=== PATIENT | male | born 1945 | race Caucasian/White ===

== ENCOUNTER 2018-03-21 06:10 | Inpatient (IN) | payer MEDICARE, OTHER ==
[~2018-03-21] VITALS: Ht 177.8 cm; Wt 97.7 kg
[~2018-03-21 06:10] MED LIST: ALPR-623 PO; AMIO200T40 PO; ATOR40TA PO; BUSP10TA11 PO; CLOP75TA35 PO; CYCL-1 PO; LISI-600 PO; QUET25TA PO; REM15T PO
[2018-03-21] MEDS ORDERED: ipratropium/albuterol 3ml nebule NEB ONE (06:15)
[2018-03-21] MEDS ORDERED: nitroGLYCERIN 0.4mg/hour patch TD ONE (06:15)
[2018-03-21] MEDS ORDERED: levoFLOXACIN-Levaquin 750MG/D5 150 ML IV ONE (06:15)
[2018-03-21] MEDS ORDERED: morphine 2 MG/ML inj. syringe IV ONE (06:15)
[2018-03-21] MEDS ORDERED: normal saline 1000ML IV soln IV ONE (06:15)
[2018-03-21] MEDS ORDERED: vancomycin/NS 1 GM ADD-VANTAGE 250 ML IV ONE (06:15)
[2018-03-21 06:32] LABS: BASOPHILS # (AUTO) 0.1 X10'3 (0-0.2); BASOPHILS % (AUTO) 0.5 % (0-1); EOSINOPHILS # (AUTO) 0.7 X10'3 (0-0.9); EOSINOPHILS % (AUTO) 5.9 % (0-6); HEMATOCRIT 56.7 % (42.0-52.0); LYMPHOCYTES # (AUTO) 1.5 X10'3 (1.1-4.8); LYMPHOCYTES % (AUTO) 12.3 % (21-51); MEAN CORPUSCULAR HEMOGLOBIN 29.1 PG (27.0-31.0); MEAN CORPUSCULAR HGB CONC 32.1 % (33.0-36.5); MEAN CORPUSCULAR VOLUME 90.7 FL (78-98); MEAN PLATELET VOLUME 8.5 FL (7.4-10.4); MONOCYTES # (AUTO) 1.4 X10'3 (0-0.9); MONOCYTES % (AUTO) 11.2 % (2-12); NEUTROPHILS # (AUTO) 8.7 X10'3 (1.8-7.7); NEUTROPHILS % (AUTO) 70.1 % (42-75); PLATELET COUNT 140 X10'3 (140-440); RED BLOOD COUNT 6.25 X10'6 (4.70-6.10); RED CELL DISTRIBUTION WIDTH 15.4 % (11.5-14.5); WHITE BLOOD COUNT 12.4 X10'3 (4.5-11.0)
[2018-03-21 06:40] LABS: ALANINE AMINOTRANSFERASE 38 U/L (12-78); ALBUMIN 3.3 G/DL (3.4-5.0); ALBUMIN/GLOBULIN RATIO 0.8 (1.1-1.5); ALKALINE PHOSPHATASE 126 IU/L (46-116); ANION GAP 6 (8-16); ASPARTATE AMINO TRANSFERASE 27 U/L (10-37); BILIRUBIN,TOTAL 1.1 MG/DL (0.1-1.0); BLOOD UREA NITROGEN 29 MG/DL (7-18); BUN/CREATININE RATIO 12.2 (5.4-32.0); CALCIUM 9.4 MG/DL (8.5-10.1); CHLORIDE 100 MMOL/L (99-107); CREATININE 2.38 MG/DL (0.60-1.10); GLUCOSE 120 MG/DL (70-104); SODIUM 138 MMOL/L (135-145); TOTAL PROTEIN 7.7 G/DL (6.4-8.2); eGFR 27 ML/MIN
[2018-03-21 06:48] LABS: MAGNESIUM 2.2 MG/DL (1.5-2.4); TROPONIN I 0.06 NG/ML (0.0-0.05)
[2018-03-21 06:51] LABS: HEMOGLOBIN 18.2 g/dl (14.0-17.9)
[2018-03-21] MEDS ORDERED: DOCU100C41 PO (07:28)
[2018-03-21] MEDS ORDERED: CARV-50 PO ×2 (07:47→07:59)
[2018-03-21] MEDS ORDERED: BENZ-38 PO (07:47)
[2018-03-21] MEDS ORDERED: MIRT15TA PO (07:47)
[2018-03-21] MEDS ORDERED: QUET25TA PO (07:47)
[2018-03-21] MEDS ORDERED: triamterene PO (07:59)
[2018-03-21] MEDS ORDERED: CLOP75TA15 PO (07:59)
[2018-03-21] MEDS ORDERED: FURO-150 PO (07:59)
[2018-03-21] MEDS ORDERED: LISI-600 PO (07:59)
[2018-03-21] MEDS ORDERED: MIRT30TA3 PO (07:59)
[2018-03-21] MEDS ORDERED: ALPR-624 PO (07:59)
[2018-03-21] MEDS ORDERED: CYCL-1 PO (07:59)
[2018-03-21] MEDS ORDERED: LORazepam 2 mg/ml vial IV ONE (08:20)
[2018-03-21 08:27] LABS: D-DIMER 1.18 MG/L FEU (0-0.50); PROTHROMBIN TIME 10.2 SECONDS (9.0-12.0)
[2018-03-21] MEDS ORDERED: methylPREDNISolone sod succ 125mg/2ml vial IV ONE (08:55)
[2018-03-21] MEDS ORDERED: magnesium 4gm in 100ml NS 100 ML IV PRN (09:00)
[2018-03-21] MEDS ORDERED: potassium Cl 20 mEq SR tablet PO PRN ×2 (09:00)
[2018-03-21] MEDS ORDERED: ipratropium/albuterol 3ml nebule NEB PRN (09:00)
[2018-03-21] MEDS ORDERED: ondansetron/PF 4mg/2ml inj IV PRN (09:00)
[2018-03-21] MEDS ORDERED: morphine 2 MG/ML inj. syringe IV PRN ×2 (09:00)
[2018-03-21] MEDS ORDERED: acetaminophen 325mg tablet PO PRN ×2 (09:00)
[2018-03-21] MEDS ORDERED: magnesium 1gm/100ml D5W IVPB 100 ML IV PRN (09:00)
[2018-03-21] MEDS ORDERED: HYDROcodone/acetaminophen 5mg/325mg tablet PO PRN (09:00)
[2018-03-21] MEDS ORDERED: magnesium Cl slow-release 64mg tablet PO PRN (09:00)
[2018-03-21] MEDS ORDERED: mag hydrox/Alum hydrox/simeth 30ml oral suspension PO PRN (09:00)
[2018-03-21] MEDS ORDERED: potassium Cl 40MEQ/NS 500ml 500 ML IV PRN ×2 (09:00)
[2018-03-21 10:59] LABS: CLARITY,URINE CLEAR (Clear); COLOR,URINE YELLOW (Yellow); GLUCOSE, URINE NEGATIVE (Neg); KETONES,URINE TRACE mg/dl (Neg); LEUKOCYTE ESTERASE ,URINE NEGATIVE (Neg); NITRITES, URINE NEGATIVE (Neg); OCCULT BLOOD,URINE NEGATIVE (Neg); PROTEIN,URINE 30 mg/dl (Neg); UROBILINOGEN,URINE 0.2 E.U/dL (0.2-1.0)
[2018-03-21 11:02] LABS: UA COLLECTION TYPE VOIDED
[2018-03-21 11:09] LABS: BACTERIA,URINE FEW /HPF (Neg); RBC,URINE 0-2 /HPF (0-2); SQUAMOUS EPITHELIAL CELL,UR FEW /LPF (FEW); WBC,URINE 0-4 /HPF (0-4)
[2018-03-21 15:15] VITALS: BP 135/54
[2018-03-21 15:30] VITALS: BP 109/53
[2018-03-21 19:00] VITALS: BP 128/55
[2018-03-21] MEDS: methylPREDNISolone sod succ/PF 40mg inj. IV SCH (19:25)
[2018-03-21 21:00] VITALS: BP 105/41
[2018-03-21 23:00] VITALS: BP 106/50
[2018-03-22] VITALS (8 sets, daily range): BP systolic 103–145; BP diastolic 51–70
[2018-03-22] MEDS: methylPREDNISolone sod succ/PF 40mg inj. IV SCH ×4 (02:10→20:06)
[2018-03-22 06:13] LABS: BASOPHILS % (AUTO) 0 % (0-1); EOSINOPHILS % (AUTO) 0 % (0-6); HEMATOCRIT 51.7 % (42.0-52.0); HEMOGLOBIN 16.4 g/dl (14.0-17.9); LYMPHOCYTES # (AUTO) 0.3 X10'3 (1.1-4.8); LYMPHOCYTES % (AUTO) 3.4 % (21-51); MEAN CORPUSCULAR HEMOGLOBIN 29.3 PG (27.0-31.0); MEAN CORPUSCULAR HGB CONC 31.8 % (33.0-36.5); MEAN CORPUSCULAR VOLUME 92.3 FL (78-98); MEAN PLATELET VOLUME 8.8 FL (7.4-10.4); MONOCYTES # (AUTO) 0.2 X10'3 (0-0.9); NEUTROPHILS # (AUTO) 8.4 X10'3 (1.8-7.7); NEUTROPHILS % (AUTO) 94.6 % (42-75); PLATELET COUNT 116 X10'3 (140-440); RED CELL DISTRIBUTION WIDTH 14.9 % (11.5-14.5); WHITE BLOOD COUNT 8.9 X10'3 (4.5-11.0)
[2018-03-22 06:46] LABS: ALANINE AMINOTRANSFERASE 31 U/L (12-78); ALBUMIN 2.8 G/DL (3.4-5.0); ALBUMIN/GLOBULIN RATIO 0.7 (1.1-1.5); ALKALINE PHOSPHATASE 95 IU/L (46-116); ANION GAP 9 (8-16); ASPARTATE AMINO TRANSFERASE 19 U/L (10-37); BILIRUBIN,TOTAL 0.6 MG/DL (0.1-1.0); BLOOD UREA NITROGEN 28 MG/DL (7-18); BUN/CREATININE RATIO 15.6 (5.4-32.0); CALCIUM 9.1 MG/DL (8.5-10.1); CHLORIDE 103 MMOL/L (99-107); CHOL/HDL RATIO 2.6 (0.00-4.99); CHOLESTEROL 130 MG/DL (0-200); GLUCOSE 146 MG/DL (70-104); HDL CHOLESTEROL 50 MG/DL (35-60); LDL CHOLESTEROL 69 MG/DL (50-100); POTASSIUM 5.1 MMOL/L (3.5-5.1); SODIUM 139 MMOL/L (135-145); TOTAL CARBON DIOXIDE 26.8 MMOL/L (24-32); TOTAL PROTEIN 6.9 G/DL (6.4-8.2); TRIGLYCERIDES 77 MG/DL (20-135); eGFR 37 ML/MIN
[2018-03-22] MEDS ORDERED: enoxaparin 40mg/0.4ml syringe SQ SCH (08:00)
[2018-03-22] MEDS: K and/or MAG REPLACEMENT MC SCH (08:00)
[2018-03-22] MEDS: levoFLOXACIN-Levaquin 500mg/D5 100 ML IV SCH (08:36)
[2018-03-22] MEDS: CefTRIAXone/D5W-Rocephin 1gm 50 ML IV SCH (12:27)
[2018-03-22] MEDS: enoxaparin 100mg/ml syringe SUBCUT SCH (20:07)
[2018-03-22] MEDS: lactobacillus rhamnosus 10,000 MMU CELLS/CAPSULE PO SCH (20:07)
[2018-03-23] MEDS: methylPREDNISolone sod succ/PF 40mg inj. IV SCH ×2 (01:26→07:52)
[2018-03-23] MEDS ORDERED: QUEtiapine 25mg tablet PO SCH (01:50)
[2018-03-23 02:56] VITALS: BP 138/63
[2018-03-23 05:08] LABS: BASOPHILS % (AUTO) 0.1 % (0-1); EOSINOPHILS % (AUTO) 0 % (0-6); HEMATOCRIT 49.3 % (42.0-52.0); HEMOGLOBIN 15.7 g/dl (14.0-17.9); LYMPHOCYTES # (AUTO) 0.5 X10'3 (1.1-4.8); LYMPHOCYTES % (AUTO) 2.8 % (21-51); MEAN CORPUSCULAR HEMOGLOBIN 29.2 PG (27.0-31.0); MEAN CORPUSCULAR HGB CONC 31.9 % (33.0-36.5); MEAN CORPUSCULAR VOLUME 91.8 FL (78-98); MEAN PLATELET VOLUME 9.2 FL (7.4-10.4); MONOCYTES # (AUTO) 0.6 X10'3 (0-0.9); MONOCYTES % (AUTO) 3.5 % (2-12); NEUTROPHILS # (AUTO) 15.1 X10'3 (1.8-7.7); NEUTROPHILS % (AUTO) 93.6 % (42-75); PLATELET COUNT 112 X10'3 (140-440); RED BLOOD COUNT 5.37 X10'6 (4.70-6.10); WHITE BLOOD COUNT 16.1 X10'3 (4.5-11.0)
[2018-03-23 05:53] LABS: ALANINE AMINOTRANSFERASE 28 U/L (12-78); ALBUMIN 2.6 G/DL (3.4-5.0); ALBUMIN/GLOBULIN RATIO 0.7 (1.1-1.5); ALKALINE PHOSPHATASE 84 IU/L (46-116); ANION GAP 10 (8-16); ASPARTATE AMINO TRANSFERASE 18 U/L (10-37); BILIRUBIN,TOTAL 0.4 MG/DL (0.1-1.0); BLOOD UREA NITROGEN 30 MG/DL (7-18); BUN/CREATININE RATIO 19.7 (5.4-32.0); CALCIUM 9.3 MG/DL (8.5-10.1); CHLORIDE 105 MMOL/L (99-107); CREATININE 1.52 MG/DL (0.60-1.10); GLUCOSE 142 MG/DL (70-104); POTASSIUM 4.9 MMOL/L (3.5-5.1); SODIUM 141 MMOL/L (135-145); TOTAL CARBON DIOXIDE 26.4 MMOL/L (24-32); TOTAL PROTEIN 6.3 G/DL (6.4-8.2); eGFR 45 ML/MIN
[2018-03-23 06:00] VITALS: BP 114/54
[2018-03-23] MEDS: K and/or MAG REPLACEMENT MC SCH (06:45)
[2018-03-23] MEDS: levoFLOXACIN-Levaquin 500mg/D5 100 ML IV SCH (07:51)
[2018-03-23] MEDS: lactobacillus rhamnosus 10,000 MMU CELLS/CAPSULE PO SCH ×2 (07:54→21:01)
[2018-03-23] MEDS: enoxaparin 100mg/ml syringe SUBCUT SCH ×2 (07:56→21:02)
[2018-03-23] MEDS: CefTRIAXone/D5W-Rocephin 1gm 50 ML IV SCH (09:22)
[2018-03-23 11:00] VITALS: BP 126/78
[2018-03-23] MEDS ORDERED: cyclobenzaprine 10mg tablet PO PRN (13:20)
[2018-03-23] MEDS: predniSONE 20 mg tablet PO SCH (13:40)
[2018-03-23 15:00] VITALS: BP 141/52
[2018-03-23] MEDS: ipratropium 0.5 MG/2.5ML nebule IH SCH ×2 (15:08→20:51)
[2018-03-23 19:00] VITALS: BP 133/63
[2018-03-23] MEDS: mirtazapine 15mg tablet PO SCH (20:57)
[2018-03-23] MEDS: busPIRone 5mg tablet PO SCH (21:00)
[2018-03-23] MEDS: carVEDilol 12.5mg tablet PO SCH (21:00)
[2018-03-23] MEDS: ALPRAZolam 0.5mg tablet PO SCH (21:01)
[2018-03-23] MEDS: lisinopril 5mg tablet PO SCH (21:01)
[2018-03-23] MEDS: QUEtiapine 25mg tablet PO SCH (21:03)
[2018-03-23] MEDS: atorvastatin 20mg tablet PO SCH (21:03)
[2018-03-23 23:00] VITALS: BP 134/57
[2018-03-24] MEDS: ipratropium 0.5 MG/2.5ML nebule IH SCH ×4 (02:00→20:36)
[2018-03-24 03:00] VITALS: BP 116/60
[2018-03-24 05:36] LABS: BASOPHILS % (AUTO) 0 % (0-1); EOSINOPHILS % (AUTO) 0 % (0-6); HEMATOCRIT 48.1 % (42.0-52.0); HEMOGLOBIN 15.4 g/dl (14.0-17.9); LYMPHOCYTES # (AUTO) 0.5 X10'3 (1.1-4.8); LYMPHOCYTES % (AUTO) 3.5 % (21-51); MEAN CORPUSCULAR HEMOGLOBIN 29.2 PG (27.0-31.0); MEAN CORPUSCULAR HGB CONC 31.9 % (33.0-36.5); MEAN CORPUSCULAR VOLUME 91.6 FL (78-98); MEAN PLATELET VOLUME 8.9 FL (7.4-10.4); MONOCYTES # (AUTO) 0.9 X10'3 (0-0.9); NEUTROPHILS # (AUTO) 13.8 X10'3 (1.8-7.7); NEUTROPHILS % (AUTO) 90.5 % (42-75); PLATELET COUNT 121 X10'3 (140-440); RED BLOOD COUNT 5.25 X10'6 (4.70-6.10); RED CELL DISTRIBUTION WIDTH 14.9 % (11.5-14.5); WHITE BLOOD COUNT 15.2 X10'3 (4.5-11.0)
[2018-03-24 05:56] LABS: ALANINE AMINOTRANSFERASE 32 U/L (12-78); ALBUMIN 2.5 G/DL (3.4-5.0); ALBUMIN/GLOBULIN RATIO 0.7 (1.1-1.5); ALKALINE PHOSPHATASE 79 IU/L (46-116); ANION GAP 4 (8-16); ASPARTATE AMINO TRANSFERASE 18 U/L (10-37); BILIRUBIN,TOTAL 0.5 MG/DL (0.1-1.0); BLOOD UREA NITROGEN 33 MG/DL (7-18); BUN/CREATININE RATIO 20.4 (5.4-32.0); CALCIUM 9.1 MG/DL (8.5-10.1); CHLORIDE 106 MMOL/L (99-107); CREATININE 1.62 MG/DL (0.60-1.10); GLUCOSE 123 MG/DL (70-104); MAGNESIUM 2.1 MG/DL (1.5-2.4); POTASSIUM 4.7 MMOL/L (3.5-5.1); SODIUM 142 MMOL/L (135-145); TOTAL CARBON DIOXIDE 32.5 MMOL/L (24-32); TOTAL PROTEIN 5.9 G/DL (6.4-8.2); eGFR 42 ML/MIN
[2018-03-24 06:00] VITALS: BP 133/70
[2018-03-24] MEDS: enoxaparin 100mg/ml syringe SUBCUT SCH (07:38)
[2018-03-24] MEDS: lactobacillus rhamnosus 10,000 MMU CELLS/CAPSULE PO SCH ×2 (07:39→21:08)
[2018-03-24] MEDS: predniSONE 20 mg tablet PO SCH (07:39)
[2018-03-24] MEDS: ALPRAZolam 0.5mg tablet PO SCH ×2 (07:39→21:07)
[2018-03-24] MEDS: furosemide 20MG tablet PO SCH (07:39)
[2018-03-24] MEDS: carVEDilol 12.5mg tablet PO SCH ×2 (07:39→21:08)
[2018-03-24] MEDS: busPIRone 5mg tablet PO SCH ×2 (07:39→21:07)
[2018-03-24] MEDS: lisinopril 5mg tablet PO SCH ×2 (07:40→21:07)
[2018-03-24] MEDS: levoFLOXACIN-Levaquin 500mg/D5 100 ML IV SCH (07:41)
[2018-03-24] MEDS: CefTRIAXone/D5W-Rocephin 1gm 50 ML IV SCH (07:41)
[2018-03-24] MEDS: K and/or MAG REPLACEMENT MC SCH (08:00)
[2018-03-24 11:00] VITALS: BP 113/58
[2018-03-24 19:00] VITALS: BP 141/65
[2018-03-24] MEDS: mirtazapine 15mg tablet PO SCH (21:00)
[2018-03-24] MEDS: atorvastatin 20mg tablet PO SCH (21:07)
[2018-03-24] MEDS: QUEtiapine 25mg tablet PO SCH (21:08)
[2018-03-24 22:00] VITALS: BP 150/58
[2018-03-25 02:00] VITALS: BP 111/55
[2018-03-25] MEDS: ipratropium 0.5 MG/2.5ML nebule IH SCH ×3 (03:00→19:59)
[2018-03-25 05:23] LABS: BASOPHILS % (AUTO) 0.1 % (0-1); EOSINOPHILS % (AUTO) 0 % (0-6); HEMATOCRIT 50.9 % (42.0-52.0); HEMOGLOBIN 16.2 g/dl (14.0-17.9); LYMPHOCYTES % (AUTO) 8.2 % (21-51); MEAN CORPUSCULAR HEMOGLOBIN 29.1 PG (27.0-31.0); MEAN CORPUSCULAR HGB CONC 31.9 % (33.0-36.5); MEAN CORPUSCULAR VOLUME 91.3 FL (78-98); MEAN PLATELET VOLUME 8.8 FL (7.4-10.4); NEUTROPHILS # (AUTO) 10.2 X10'3 (1.8-7.7); NEUTROPHILS % (AUTO) 83.7 % (42-75); PLATELET COUNT 113 X10'3 (140-440); RED BLOOD COUNT 5.57 X10'6 (4.70-6.10); RED CELL DISTRIBUTION WIDTH 15.4 % (11.5-14.5); WHITE BLOOD COUNT 12.2 X10'3 (4.5-11.0)
[2018-03-25 05:52] LABS: ALANINE AMINOTRANSFERASE 39 U/L (12-78); ALBUMIN 2.5 G/DL (3.4-5.0); ALBUMIN/GLOBULIN RATIO 0.7 (1.1-1.5); ALKALINE PHOSPHATASE 80 IU/L (46-116); ANION GAP 3 (8-16); ASPARTATE AMINO TRANSFERASE 19 U/L (10-37); BILIRUBIN,TOTAL 0.5 MG/DL (0.1-1.0); BLOOD UREA NITROGEN 37 MG/DL (7-18); BUN/CREATININE RATIO 21.9 (5.4-32.0); CHLORIDE 105 MMOL/L (99-107); CREATININE 1.69 MG/DL (0.60-1.10); GLUCOSE 94 MG/DL (70-104); MAGNESIUM 2.3 MG/DL (1.5-2.4); POTASSIUM 4.3 MMOL/L (3.5-5.1); SODIUM 143 MMOL/L (135-145); TOTAL CARBON DIOXIDE 34.7 MMOL/L (24-32); eGFR 40 ML/MIN
[2018-03-25 06:00] VITALS: BP 130/70
[2018-03-25] MEDS: lisinopril 5mg tablet PO SCH ×2 (07:01→20:07)
[2018-03-25] MEDS: carVEDilol 12.5mg tablet PO SCH ×2 (07:01→20:07)
[2018-03-25] MEDS: busPIRone 5mg tablet PO SCH ×2 (08:00→14:46)
[2018-03-25] MEDS: ALPRAZolam 0.5mg tablet PO SCH ×2 (08:00→14:44)
[2018-03-25] MEDS: furosemide 20MG tablet PO SCH ×2 (08:00→14:45)
[2018-03-25] MEDS: levoFLOXACIN-Levaquin 500mg/D5 100 ML IV SCH ×2 (08:00→14:47)
[2018-03-25] MEDS: K and/or MAG REPLACEMENT MC SCH (08:00)
[2018-03-25] MEDS: predniSONE 20 mg tablet PO SCH ×2 (08:00→14:45)
[2018-03-25] MEDS: CefTRIAXone/D5W-Rocephin 1gm 50 ML IV SCH ×2 (08:00→14:47)
[2018-03-25] MEDS: lactobacillus rhamnosus 10,000 MMU CELLS/CAPSULE PO SCH ×2 (08:00→14:45)
[2018-03-25 14:18] VITALS: BP 127/75
[2018-03-25 15:00] VITALS: BP 119/43
[2018-03-25] MEDS: magnesium hydroxide 30ml (MOM) UD suspension PO PRN (18:37)
[2018-03-25 19:00] VITALS: BP 125/57
[2018-03-25] MEDS: mirtazapine 15mg tablet PO SCH (20:07)
[2018-03-25] MEDS: QUEtiapine 25mg tablet PO SCH (20:07)
[2018-03-25] MEDS: atorvastatin 20mg tablet PO SCH (20:07)
[2018-03-25] MEDS: enoxaparin 100mg/ml syringe SUBCUT SCH (20:08)
[2018-03-25 23:00] VITALS: BP 116/46
[2018-03-26] VITALS (10 sets, daily range): BP systolic 79–133; BP diastolic 38–58
[2018-03-26] MEDS: ipratropium 0.5 MG/2.5ML nebule IH SCH ×4 (02:21→20:27)
[2018-03-26] MEDS ORDERED: normal saline 1000ml 1,000 ML IVB ONE (03:36)
[2018-03-26] MEDS: normal saline 1000ml 1,000 ML IV SCH ×4 (04:16→23:36)
[2018-03-26 05:57] LABS: BASOPHILS % (AUTO) 0 % (0-1); EOSINOPHILS % (AUTO) 0 % (0-6); HEMATOCRIT 51.6 % (42.0-52.0); HEMOGLOBIN 16.5 g/dl (14.0-17.9); LYMPHOCYTES # (AUTO) 0.5 X10'3 (1.1-4.8); MEAN CORPUSCULAR HEMOGLOBIN 29.4 PG (27.0-31.0); MEAN CORPUSCULAR HGB CONC 31.9 % (33.0-36.5); MEAN CORPUSCULAR VOLUME 92.2 FL (78-98); MONOCYTES # (AUTO) 0.6 X10'3 (0-0.9); MONOCYTES % (AUTO) 5.9 % (2-12); NEUTROPHILS # (AUTO) 9.2 X10'3 (1.8-7.7); NEUTROPHILS % (AUTO) 89.1 % (42-75); PLATELET COUNT 86 X10'3 (140-440); RED BLOOD COUNT 5.59 X10'6 (4.70-6.10); WHITE BLOOD COUNT 10.3 X10'3 (4.5-11.0)
[2018-03-26 06:12] LABS: ALANINE AMINOTRANSFERASE 43 U/L (12-78); ALBUMIN 2.5 G/DL (3.4-5.0); ALBUMIN/GLOBULIN RATIO 0.8 (1.1-1.5); ALKALINE PHOSPHATASE 75 IU/L (46-116); ANION GAP 3 (8-16); ASPARTATE AMINO TRANSFERASE 21 U/L (10-37); BILIRUBIN,TOTAL 0.5 MG/DL (0.1-1.0); BLOOD UREA NITROGEN 43 MG/DL (7-18); BUN/CREATININE RATIO 24.3 (5.4-32.0); CALCIUM 8.7 MG/DL (8.5-10.1); CHLORIDE 106 MMOL/L (99-107); CREATININE 1.77 MG/DL (0.60-1.10); GLUCOSE 124 MG/DL (70-104); MAGNESIUM 2.7 MG/DL (1.5-2.4); POTASSIUM 4.8 MMOL/L (3.5-5.1); SODIUM 145 MMOL/L (135-145); TOTAL CARBON DIOXIDE 35.8 MMOL/L (24-32); TOTAL PROTEIN 5.7 G/DL (6.4-8.2); eGFR 38 ML/MIN
[2018-03-26] MEDS: enoxaparin 100mg/ml syringe SUBCUT SCH ×2 (08:00→16:30)
[2018-03-26] MEDS: K and/or MAG REPLACEMENT MC SCH (08:00)
[2018-03-26] MEDS: ALPRAZolam 0.5mg tablet PO SCH ×2 (08:27→21:29)
[2018-03-26] MEDS: lisinopril 5mg tablet PO SCH ×2 (08:27→21:28)
[2018-03-26] MEDS: lactobacillus rhamnosus 10,000 MMU CELLS/CAPSULE PO SCH ×2 (08:27→21:27)
[2018-03-26] MEDS: busPIRone 5mg tablet PO SCH ×2 (08:28→21:28)
[2018-03-26] MEDS: carVEDilol 12.5mg tablet PO SCH ×2 (08:28→21:28)
[2018-03-26] MEDS ORDERED: magnesium citrate 296ml oral solution PO ONE (10:30)
[2018-03-26] MEDS: metroNIDAZOLE-Flagyl 500mg/NS 100 ML IV SCH (16:17)
[2018-03-26] MEDS: mirtazapine 15mg tablet PO SCH (21:00)
[2018-03-26] MEDS: atorvastatin 20mg tablet PO SCH (21:28)
[2018-03-26] MEDS: QUEtiapine 25mg tablet PO SCH (21:29)
[2018-03-27] MEDS: metroNIDAZOLE-Flagyl 500mg/NS 100 ML IV SCH ×4 (02:37→23:49)
[2018-03-27] MEDS: ipratropium 0.5 MG/2.5ML nebule IH SCH ×4 (02:48→20:29)
[2018-03-27 03:00] VITALS: BP 88/70
[2018-03-27 06:00] VITALS: BP 103/47
[2018-03-27] MEDS: normal saline 1000ml 1,000 ML IV SCH ×3 (06:16→19:36)
[2018-03-27] MEDS ORDERED: carvedilol 6.25mg tablet PO SCH (08:00)
[2018-03-27] MEDS: K and/or MAG REPLACEMENT MC SCH (08:00)
[2018-03-27] MEDS: enoxaparin 100mg/ml syringe SUBCUT SCH ×2 (08:00→20:58)
[2018-03-27] MEDS ORDERED: lisinopril 5mg tablet PO SCH (08:00)
[2018-03-27] MEDS: ALPRAZolam 0.5mg tablet PO SCH (08:14)
[2018-03-27] MEDS: furosemide 20MG tablet PO SCH (08:14)
[2018-03-27] MEDS: lactobacillus rhamnosus 10,000 MMU CELLS/CAPSULE PO SCH ×2 (08:16→20:57)
[2018-03-27] MEDS: predniSONE 20 mg tablet PO SCH (08:16)
[2018-03-27] MEDS: busPIRone 5mg tablet PO SCH ×2 (08:17→20:56)
[2018-03-27] MEDS: CefTRIAXone/D5W-Rocephin 1gm 50 ML IV SCH (08:18)
[2018-03-27 09:38] LABS: BASOPHILS % (AUTO) 0.2 % (0-1); EOSINOPHILS # (AUTO) 0.2 X10'3 (0-0.9); EOSINOPHILS % (AUTO) 2.2 % (0-6); HEMATOCRIT 51.2 % (42.0-52.0); HEMOGLOBIN 16.3 g/dl (14.0-17.9); LYMPHOCYTES % (AUTO) 9.2 % (21-51); MEAN CORPUSCULAR HEMOGLOBIN 29.2 PG (27.0-31.0); MEAN CORPUSCULAR HGB CONC 31.8 % (33.0-36.5); MEAN CORPUSCULAR VOLUME 92.1 FL (78-98); MEAN PLATELET VOLUME 8.3 FL (7.4-10.4); MONOCYTES # (AUTO) 0.6 X10'3 (0-0.9); MONOCYTES % (AUTO) 5.3 % (2-12); NEUTROPHILS # (AUTO) 8.7 X10'3 (1.8-7.7); NEUTROPHILS % (AUTO) 83.1 % (42-75); PLATELET COUNT 89 X10'3 (140-440); RED BLOOD COUNT 5.56 X10'6 (4.70-6.10); WHITE BLOOD COUNT 10.5 X10'3 (4.5-11.0)
[2018-03-27 09:52] LABS: ALANINE AMINOTRANSFERASE 47 U/L (12-78); ALBUMIN 2.3 G/DL (3.4-5.0); ALBUMIN/GLOBULIN RATIO 0.7 (1.1-1.5); ALKALINE PHOSPHATASE 74 IU/L (46-116); ANION GAP 4 (8-16); ASPARTATE AMINO TRANSFERASE 34 U/L (10-37); BILIRUBIN,TOTAL 0.7 MG/DL (0.1-1.0); BLOOD UREA NITROGEN 34 MG/DL (7-18); CALCIUM 8.2 MG/DL (8.5-10.1); CHLORIDE 106 MMOL/L (99-107); CREATININE 1.62 MG/DL (0.60-1.10); GLUCOSE 137 MG/DL (70-104); POTASSIUM 4.5 MMOL/L (3.5-5.1); SODIUM 144 MMOL/L (135-145); TOTAL CARBON DIOXIDE 33.6 MMOL/L (24-32); TOTAL PROTEIN 5.5 G/DL (6.4-8.2); eGFR 42 ML/MIN
[2018-03-27 11:00] VITALS: BP 129/63
[2018-03-27] MEDS: levoFLOXACIN 500mg tablet PO SCH (13:10)
[2018-03-27 15:00] VITALS: BP 131/65
[2018-03-27] MEDS: magnesium hydroxide 30ml (MOM) UD suspension PO PRN (15:00)
[2018-03-27 18:00] VITALS: BP 113/60
[2018-03-27] MEDS: QUEtiapine 25mg tablet PO SCH (20:55)
[2018-03-27] MEDS: atorvastatin 20mg tablet PO SCH (20:57)
[2018-03-27 22:00] VITALS: BP 117/43
[2018-03-28] VITALS (7 sets, daily range): BP systolic 102–142; BP diastolic 47–70
[2018-03-28] MEDS: normal saline 1000ml 1,000 ML IV SCH ×3 (02:16→21:37)
[2018-03-28] MEDS: ipratropium 0.5 MG/2.5ML nebule IH SCH ×4 (02:56→20:31)
[2018-03-28 06:13] LABS: BASOPHILS % (AUTO) 0 % (0-1); EOSINOPHILS % (AUTO) 0.3 % (0-6); HEMATOCRIT 47.3 % (42.0-52.0); HEMOGLOBIN 14.9 g/dl (14.0-17.9); LYMPHOCYTES # (AUTO) 0.6 X10'3 (1.1-4.8); LYMPHOCYTES % (AUTO) 5.6 % (21-51); MEAN CORPUSCULAR HEMOGLOBIN 29.1 PG (27.0-31.0); MEAN CORPUSCULAR HGB CONC 31.4 % (33.0-36.5); MEAN CORPUSCULAR VOLUME 92.6 FL (78-98); MEAN PLATELET VOLUME 8.9 FL (7.4-10.4); MONOCYTES # (AUTO) 0.7 X10'3 (0-0.9); MONOCYTES % (AUTO) 6.5 % (2-12); NEUTROPHILS # (AUTO) 9.3 X10'3 (1.8-7.7); NEUTROPHILS % (AUTO) 87.6 % (42-75); PLATELET COUNT 87 X10'3 (140-440); RED BLOOD COUNT 5.11 X10'6 (4.70-6.10); RED CELL DISTRIBUTION WIDTH 14.9 % (11.5-14.5); WHITE BLOOD COUNT 10.6 X10'3 (4.5-11.0)
[2018-03-28 06:37] LABS: ALANINE AMINOTRANSFERASE 51 U/L (12-78); ALBUMIN 2.1 G/DL (3.4-5.0); ALBUMIN/GLOBULIN RATIO 0.7 (1.1-1.5); ALKALINE PHOSPHATASE 66 IU/L (46-116); ANION GAP 1 (8-16); ASPARTATE AMINO TRANSFERASE 24 U/L (10-37); BILIRUBIN,TOTAL 0.4 MG/DL (0.1-1.0); BLOOD UREA NITROGEN 30 MG/DL (7-18); BUN/CREATININE RATIO 20.7 (5.4-32.0); CALCIUM 8.3 MG/DL (8.5-10.1); CHLORIDE 108 MMOL/L (99-107); CREATININE 1.45 MG/DL (0.60-1.10); GLUCOSE 142 MG/DL (70-104); MAGNESIUM 2.7 MG/DL (1.5-2.4); POTASSIUM 4.7 MMOL/L (3.5-5.1); SODIUM 145 MMOL/L (135-145); TOTAL CARBON DIOXIDE 35.9 MMOL/L (24-32); TOTAL PROTEIN 5.2 G/DL (6.4-8.2); eGFR 48 ML/MIN
[2018-03-28] MEDS: metroNIDAZOLE-Flagyl 500mg/NS 100 ML IV SCH ×3 (07:59→23:24)
[2018-03-28] MEDS: CefTRIAXone/D5W-Rocephin 1gm 50 ML IV SCH (07:59)
[2018-03-28] MEDS: ALPRAZolam 0.5mg tablet PO SCH (08:00)
[2018-03-28] MEDS: enoxaparin 100mg/ml syringe SUBCUT SCH (08:00)
[2018-03-28] MEDS: lactobacillus rhamnosus 10,000 MMU CELLS/CAPSULE PO SCH ×2 (08:00→20:19)
[2018-03-28] MEDS: K and/or MAG REPLACEMENT MC SCH (08:00)
[2018-03-28] MEDS: predniSONE 20 mg tablet PO SCH (08:00)
[2018-03-28] MEDS: busPIRone 5mg tablet PO SCH ×2 (08:00→20:19)
[2018-03-28] MEDS: levoFLOXACIN 500mg tablet PO SCH (11:34)
[2018-03-28] MEDS: atorvastatin 20mg tablet PO SCH (20:19)
[2018-03-28] MEDS: QUEtiapine 25mg tablet PO SCH (20:19)
[2018-03-28] MEDS: apixaban 5mg tablet PO SCH (20:20)
[2018-03-29] MEDS: ipratropium 0.5 MG/2.5ML nebule IH SCH ×4 (02:00→20:12)
[2018-03-29 03:00] VITALS: BP 133/61
[2018-03-29 06:38] LABS: BASOPHILS % (AUTO) 0.4 % (0-1); EOSINOPHILS # (AUTO) 0.2 X10'3 (0-0.9); EOSINOPHILS % (AUTO) 1.5 % (0-6); HEMOGLOBIN 15.1 g/dl (14.0-17.9); LYMPHOCYTES # (AUTO) 1.2 X10'3 (1.1-4.8); LYMPHOCYTES % (AUTO) 10.6 % (21-51); MEAN CORPUSCULAR HEMOGLOBIN 29.1 PG (27.0-31.0); MEAN CORPUSCULAR HGB CONC 31.6 % (33.0-36.5); MEAN CORPUSCULAR VOLUME 92.3 FL (78-98); MEAN PLATELET VOLUME 8.5 FL (7.4-10.4); MONOCYTES # (AUTO) 1.2 X10'3 (0-0.9); MONOCYTES % (AUTO) 10.4 % (2-12); NEUTROPHILS # (AUTO) 8.8 X10'3 (1.8-7.7); NEUTROPHILS % (AUTO) 77.1 % (42-75); PLATELET COUNT 104 X10'3 (140-440); RED CELL DISTRIBUTION WIDTH 15.1 % (11.5-14.5); WHITE BLOOD COUNT 11.4 X10'3 (4.5-11.0)
[2018-03-29 06:45] VITALS: BP 163/69
[2018-03-29 06:53] LABS: ALANINE AMINOTRANSFERASE 45 U/L (12-78); ALBUMIN 2.3 G/DL (3.4-5.0); ALBUMIN/GLOBULIN RATIO 0.7 (1.1-1.5); ALKALINE PHOSPHATASE 65 IU/L (46-116); ANION GAP 0 (8-16); ASPARTATE AMINO TRANSFERASE 18 U/L (10-37); BILIRUBIN,TOTAL 0.4 MG/DL (0.1-1.0); BLOOD UREA NITROGEN 26 MG/DL (7-18); BUN/CREATININE RATIO 18.7 (5.4-32.0); CALCIUM 8.7 MG/DL (8.5-10.1); CHLORIDE 107 MMOL/L (99-107); CREATININE 1.39 MG/DL (0.60-1.10); GLUCOSE 103 MG/DL (70-104); POTASSIUM 4.5 MMOL/L (3.5-5.1); SODIUM 144 MMOL/L (135-145); TOTAL CARBON DIOXIDE 37.3 MMOL/L (24-32); TOTAL PROTEIN 5.4 G/DL (6.4-8.2); eGFR 50 ML/MIN
[2018-03-29] MEDS: predniSONE 20 mg tablet PO SCH (07:49)
[2018-03-29] MEDS: metroNIDAZOLE-Flagyl 500mg/NS 100 ML IV SCH ×2 (07:49→15:24)
[2018-03-29] MEDS: CefTRIAXone/D5W-Rocephin 1gm 50 ML IV SCH (07:49)
[2018-03-29] MEDS: ALPRAZolam 0.5mg tablet PO SCH (07:50)
[2018-03-29] MEDS: lactobacillus rhamnosus 10,000 MMU CELLS/CAPSULE PO SCH ×2 (07:50→20:42)
[2018-03-29] MEDS: busPIRone 5mg tablet PO SCH ×2 (07:50→20:41)
[2018-03-29] MEDS: apixaban 5mg tablet PO SCH ×2 (07:50→20:41)
[2018-03-29] MEDS: K and/or MAG REPLACEMENT MC SCH (07:57)
[2018-03-29] MEDS: levoFLOXACIN 500mg tablet PO SCH (11:18)
[2018-03-29] MEDS: amLODIPine 5mg tablet PO SCH (15:17)
[2018-03-29] MEDS: normal saline 1000ml 1,000 ML IV SCH (18:29)
[2018-03-29 19:00] VITALS: BP 151/68
[2018-03-29] MEDS: atorvastatin 20mg tablet PO SCH (20:41)
[2018-03-29] MEDS: QUEtiapine 25mg tablet PO SCH (20:42)
[2018-03-29 23:00] VITALS: BP 130/63
[2018-03-30] MEDS: metroNIDAZOLE-Flagyl 500mg/NS 100 ML IV SCH ×2 (00:15→07:46)
[2018-03-30] MEDS: ipratropium 0.5 MG/2.5ML nebule IH SCH ×2 (02:00→08:14)
[2018-03-30 03:00] VITALS: BP 154/75
[2018-03-30 06:00] VITALS: BP 159/75
[2018-03-30 06:09] LABS: BASOPHILS % (AUTO) 0.2 % (0-1); EOSINOPHILS # (AUTO) 0.1 X10'3 (0-0.9); EOSINOPHILS % (AUTO) 1.3 % (0-6); HEMATOCRIT 47.6 % (42.0-52.0); HEMOGLOBIN 15.3 g/dl (14.0-17.9); LYMPHOCYTES # (AUTO) 1.1 X10'3 (1.1-4.8); LYMPHOCYTES % (AUTO) 11.1 % (21-51); MEAN CORPUSCULAR HEMOGLOBIN 29.3 PG (27.0-31.0); MEAN CORPUSCULAR VOLUME 91.4 FL (78-98); MEAN PLATELET VOLUME 8.5 FL (7.4-10.4); MONOCYTES # (AUTO) 1.3 X10'3 (0-0.9); MONOCYTES % (AUTO) 13.3 % (2-12); NEUTROPHILS # (AUTO) 7.5 X10'3 (1.8-7.7); NEUTROPHILS % (AUTO) 74.1 % (42-75); PLATELET COUNT 116 X10'3 (140-440); RED BLOOD COUNT 5.21 X10'6 (4.70-6.10); RED CELL DISTRIBUTION WIDTH 15.2 % (11.5-14.5); WHITE BLOOD COUNT 10.1 X10'3 (4.5-11.0)
[2018-03-30 06:53] LABS: ALANINE AMINOTRANSFERASE 44 U/L (12-78); ALBUMIN 2.3 G/DL (3.4-5.0); ALBUMIN/GLOBULIN RATIO 0.7 (1.1-1.5); ALKALINE PHOSPHATASE 62 IU/L (46-116); ANION GAP 4 (8-16); ASPARTATE AMINO TRANSFERASE 22 U/L (10-37); BILIRUBIN,TOTAL 0.4 MG/DL (0.1-1.0); BLOOD UREA NITROGEN 24 MG/DL (7-18); CALCIUM 8.8 MG/DL (8.5-10.1); CHLORIDE 106 MMOL/L (99-107); CREATININE 1.26 MG/DL (0.60-1.10); GLUCOSE 101 MG/DL (70-104); POTASSIUM 4.5 MMOL/L (3.5-5.1); SODIUM 142 MMOL/L (135-145); TOTAL CARBON DIOXIDE 31.6 MMOL/L (24-32); TOTAL PROTEIN 5.4 G/DL (6.4-8.2); eGFR 56 ML/MIN
[2018-03-30] MEDS: K and/or MAG REPLACEMENT MC SCH (07:05)
[2018-03-30] MEDS: ALPRAZolam 0.5mg tablet PO SCH (07:45)
[2018-03-30] MEDS: CefTRIAXone/D5W-Rocephin 1gm 50 ML IV SCH (07:46)
[2018-03-30] MEDS: busPIRone 5mg tablet PO SCH (07:46)
[2018-03-30] MEDS: amLODIPine 5mg tablet PO SCH (07:46)
[2018-03-30] MEDS: apixaban 5mg tablet PO SCH (07:46)
[2018-03-30] MEDS: lactobacillus rhamnosus 10,000 MMU CELLS/CAPSULE PO SCH (07:46)
[2018-03-30] MEDS: predniSONE 20 mg tablet PO SCH (07:46)
[2018-03-30] MEDS: normal saline 1000ml 1,000 ML IV SCH (09:48)
[2018-03-30 11:00] VITALS: BP 124/68
[2018-03-30] MEDS: levoFLOXACIN 500mg tablet PO SCH (11:13)
[2018-03-30] MEDS ORDERED: LEVO500T89 PO (11:37)
[2018-03-30] MEDS ORDERED: APIX5TAB3 PO (11:37)
[2018-03-30] MEDS ORDERED: ASPI81TA30 PO (11:37)
[2018-03-30] MEDS ORDERED: PRED10TA23 PO (11:37)
[2018-03-30] MEDS ORDERED: METR500T4 PO (11:37)
[2018-03-30] MEDS ORDERED: ALBU8.5H8 IH (11:37)
[2018-04-04] MEDS ORDERED: apixaban 5mg tablet PO SCH (20:00)
== END 2018-03-30 14:57 | disposition home health service (06) | DRG 180 ==
LOC: ER 06:11 → ED HOLD 08:58 → EDBEDREQ 12:21 → PCU 3S 14:10
PROVIDERS: ADMIT Internal Medicine; ATTEND Internal Medicine
PROC: 5A09357 Assistance with Respiratory Ventilation, Less than 24 Consecutive Hours, Continuous Positive Airway Pressure (ICD-10-PCS; principal; 2018-03-21)
PROC: CB121ZZ Planar Nuclear Medicine Imaging of Lungs and Bronchi using Technetium 99m (Tc-99m) (ICD-10-PCS; 2018-03-21)
PROC: 5A09357 Assistance with Respiratory Ventilation, Less than 24 Consecutive Hours, Continuous Positive Airway Pressure (ICD-10-PCS; 2018-03-26)
PROC: 5A09357 Assistance with Respiratory Ventilation, Less than 24 Consecutive Hours, Continuous Positive Airway Pressure (ICD-10-PCS; 2018-03-27)
DX: C34.91 Malignant neoplasm of unspecified part of right bronchus or lung (principal); I26.99 Other pulmonary embolism without acute cor pulmonale; J18.1 Lobar pneumonia, unspecified organism; J96.01 Acute respiratory failure with hypoxia; J44.1 Chronic obstructive pulmonary disease with (acute) exacerbation; R65.10 Systemic inflammatory response syndrome (SIRS) of non-infectious origin without acute organ dysfunction; J44.0 Chronic obstructive pulmonary disease with (acute) lower respiratory infection; N17.9 Acute kidney failure, unspecified; I25.10 Atherosclerotic heart disease of native coronary artery without angina pectoris; D75.1 Secondary polycythemia; F10.20 Alcohol dependence, uncomplicated; D69.6 Thrombocytopenia, unspecified; E66.01 Morbid (severe) obesity due to excess calories; R26.2 Difficulty in walking, not elsewhere classified; R59.0 Localized enlarged lymph nodes; I36.1 Nonrheumatic tricuspid (valve) insufficiency; E78.5 Hyperlipidemia, unspecified; E86.0 Dehydration; W18.39XA Other fall on same level, initial encounter; F17.290 Nicotine dependence, other tobacco product, uncomplicated; I10 Essential (primary) hypertension; N18.9 Chronic kidney disease, unspecified; Z90.5 Acquired absence of kidney; Z95.810 Presence of automatic (implantable) cardiac defibrillator; Z95.1 Presence of aortocoronary bypass graft; Z88.6 Allergy status to analgesic agent; Z79.899 Other long term (current) drug therapy; Z80.9 Family history of malignant neoplasm, unspecified; Z80.1 Family history of malignant neoplasm of trachea, bronchus and lung; Z82.49 Family history of ischemic heart disease and other diseases of the circulatory system; Z68.30 Body mass index [BMI] 30.0-30.9, adult; Y93.89 Activity, other specified; Y92.89 Other specified places as the place of occurrence of the external cause; Y99.8 Other external cause status
CPT/HCPCS: 36415; 70450; 71045; 71250; 78582; 80053; 80061; 81001; 82948; 83605; 83735; 83880; 84145; 84484; 85025; 85379; 85610; 87040; 87070; 93005; 93306; 93970; 94640; 94660; 94667; 94668; 94760; 96365; 96366; 96368; 96375; 97110; 97116; 97162; 97530; 99285; A9539; A9540; G0378; J0696; J1650; J1956; J2270; J2920; J2930; J3370; J3490; J7030; J7512